=== PATIENT | male | born 1965 | race Caucasian/White ===

== ENCOUNTER 2018-08-07 07:16 | Inpatient (IN) | payer MEDICAID ==
[2018-08-07] VITALS (8 sets, daily range): BP systolic 129–150; BP diastolic 87–100
[~2018-08-07] VITALS: Ht 172.7 cm; Wt 65.8 kg
--- NOTE | 2018-08-07 07:18 | NUR ---
PATIENT BIBA TO BED 11 AT THIS TIME.
[2018-08-07] MEDS ORDERED: NACL 0.9% 1,000 ML IV ONE (07:25)
[2018-08-07] MEDS ORDERED: LORazepam 2 MG/ML VIAL IVP ONE ×2 (07:25→07:55)
--- NOTE | 2018-08-07 07:30 | NUR ---
BIB [facility] WITH C/O SEIZURE & FALL OF BED THIS MORNING WITH ABRASION WOUND TO RIGHT FORHEAD, SIZURE ON SCENE LAST FOR 1 MINS PER REPORT, DENIES ALOC, PT IS AAOX2, TONIC-CLONIC SEIZURE AT ER, +N/V, HX OF ETOH, SEIZURE. DENIES TAKE ANY MEDICATIONS AT HOME. PATIENT STATES PAIN OF 0/10 AT THIS TIME. PATIENT POSITIONED FOR COMFORT; HOB ELEVATED; BEDRAILS UP X2; BED DOWN.SEIZURE PRECAUTION. ER MD MADE AWARE OF PT STATUS.
--- NOTE | 2018-08-07 07:43 | NUR ---
LAB AT BEDSIDE
[2018-08-07 07:57] LABS: BASOPHILS # (AUTO) 0.1 K/uL (0.00-0.22); BASOPHILS % (AUTO) 1.4 % (0.0-2.0); EOSINOPHILS % (AUTO) 0.3 % (0.0-4.0); HEMATOCRIT 36.3 % (36-52); HEMOGLOBIN 12.3 g/dL (12.0-18.0); LYMPHOCYTES # (AUTO) 0.4 K/uL (2.0-11.5); LYMPHOCYTES % (AUTO) 8.4 % (20.5-51.1); MEAN CORPUSCULAR HEMOGLOBIN 33 pg (27-31); MEAN CORPUSCULAR HGB CONC 34 g/dL (33-37); MEAN CORPUSCULAR VOLUME 97.8 fL (80-94); MONOCYTES # (AUTO) 0.4 K/uL (0.8-1.0); MONOCYTES % (AUTO) 8.6 % (1.7-9.3); NEUTROPHILS % (AUTO) 81.3 % (42.2-75.2); PLATELET COUNT (AUTO) 84 K/uL (140-450); RED BLOOD CELL COUNT(AUTO) 3.71 MIL/uL (4.20-6.10); RED CELL DISTRIBUTION WIDTH 17.7 % (11.6-13.7); WHITE BLOOD COUNT (AUTO) 4.9 K/uL (4.8-10.8)
[2018-08-07] MEDS ORDERED: LORazepam 2 MG/ML VIAL ONE (08:07)
[2018-08-07 08:14] LABS: ALBUMIN 3.1 g/dL (3.4-5.0); ANION GAP 17.7 (8-16); ASPARTATE AMINOTRANSFERASE 204 U/L (15-37); CARBON DIOXIDE 23.2 mmol/L (21-32); CHLORIDE 98 mmol/L (98-107); GFR ARICAN-AMERICAN 101 mL/min (>90); GLUCOSE 152 mg/dL (74-106); MAGNESIUM 1.1 mg/dL (1.8-2.4); PHOSPHORUS 2.6 mg/dL (2.5-4.9); SODIUM SERUM 136 mmol/L (136-145); TOTAL BILIRUBIN 1.6 mg/dL (0.0-1.0); UREA NITROGEN, BLOOD 7 mg/dL (7-18)
--- NOTE | 2018-08-07 08:15 | NUR ---
PT RETURNED FROM CT Addendum: 08/07/18 at 0918 by [email or web address] PT CAN'T PROVIDE URINE AT THIS TIME
[2018-08-07 08:16] LABS: ACETAMINOPHEN < 0.5 ug/ml (10-30); POTASSIUM 2.9 mmol/L (3.5-5.1); SALICYLATE < 2.8 mg/dL (2.8-20.0)
[2018-08-07] MEDS ORDERED: FOLIC ACID 5 MG, MULTIVITAMIN-12 10 ML, THIAMINE 100 MG, MAGNESIUM SULFATE 50% 2,000 MG... IV ONE ×5 (08:22)
[2018-08-07] MEDS ORDERED: MAG SULF 2000 MG/WATER PREMIX 50 ML IV ONE (08:25)
[2018-08-07] MEDS ORDERED: KCL 20 MEQ/WATER INJ PREMIX 100 ML IV ONE (08:25)
[2018-08-07] MEDS ORDERED: ZOLPIDEM 5 MG TAB PO PRN (08:30)
[2018-08-07] MEDS ORDERED: LORazepam 2 MG/ML VIAL IM/IVP PRN (08:30)
[2018-08-07] MEDS ORDERED: ACETAMINOPHEN 325 MG TAB PO PRN (08:30)
[2018-08-07] MEDS ORDERED: HYDROcodone/APAP 5/325 MG 1 TAB TAB PO PRN (08:30)
[2018-08-07] MEDS ORDERED: MORPHINE SULFATE 2 MG/ML SYR IVP PRN (08:30)
[2018-08-07] MEDS ORDERED: DOCUSATE SODIUM 100 MG GELCAP PO PRN (08:30)
[2018-08-07] MEDS ORDERED: ONDANSETRON 4 MG/2 ML VIAL IM/IVP PRN (08:30)
[2018-08-07] MEDS ORDERED: LORazepam 2 MG/ML VIAL IVP PRN (08:35)
[2018-08-07] MEDS ORDERED: MECLIZINE 25 MG TAB PO PRN (08:35)
[2018-08-07 08:52] LABS: PROTHROMBIN TIME 10.8 secs (10.8-13.4)
[2018-08-07 08:58] LABS: PHOSPHORUS 2.7 mg/dL (2.5-4.9); THYROID STIMULATING HORMONE 2.9 uIU/mL (0.34-3.74)
--- NOTE | 2018-08-07 09:13 | NUR ---
Patient will be admitted to care of DR GARDNER. Admited to ICU. Will go to room 2. Belongings list completed. Report to JACK CARVER.
--- NOTE | 2018-08-07 09:13 | NUR ---
PT TRANSFERRED FROM ER. RECEIVED REPORT FROM MOIRA AUGUSTIN RN. PT A&0 X4. PT DROWSY BUT AWAKE. PT HAS GENERALIZED WEAKNESS AND TREMBLING. PUPILS 3MM BRISK, LEFT AND RIGHT, PERRLA. PT HAS 3MM X 0.5MM LACERATION TO RIGHT FOREHEAD SP FALL FROM PRESENT UPON ADMISSION. PATENT AIRWAY, ROOM AIR. CLEAR AND EQUAL BILATERAL BREATH SOUNDS, EQUAL CHEST EXPANSION. S1/S2 NOTED. SINUS TACH ON PLANT SUPERINTENDENT. PALPABLE PULSES AT RADIAL, POSTERIOR TIBIAL, DORSALIS PEDIS SUPERVISOR MOTORCYCLE REPAIR SHOP <3. ACTIVE BOWEL SOUNDS ALL FOUR QUADRANTS. SKIN IS WARM, PINK, DRY. IV ACCESS VIA LEFT HAND PIV (20 GAUGE), CURRENTLY RUNNING POTASSIUM CHLORIDE (20MEQ/100ML) AT 50ML/HR, SITE APPEARS LIGHT RED IN COLOR. NPO EXCEPT MEDS. PT SAFETY PRECAUTIONS IN PLACE. BED AT LOWEST POSITION, CALL LIGHT WITHIN REACH, SIDE RAILS PADDED FOR SEIZURE PRECAUTIONS. INITIAL VITAL SIGNS: HR 119, BP 150/87, RR 14, SPO2 96% RA.
--- NOTE | 2018-08-07 09:30 | NUR ---
PT'S VALUABLES GIVEN TO SECURITY FOR SAFE KEEPING.
--- NOTE | 2018-08-07 10:35 | NUR ---
COMMISSIONED SALES ASSOCIATE AT BEDSIDE FOR ABDOMINAL ULTRASOUND
--- NOTE | 2018-08-07 10:59 | NUR ---
RN AT THE BEDSIDE EVALUATING THE PT AT THIS TIME.
[2018-08-07] MEDS ORDERED: KCL 20 MEQ/WATER INJ PREMIX 200 ML IV SCH (11:00)
[2018-08-07] MEDS ORDERED: BISACODYL 10 MG SUPP RC SCH (11:15)
--- NOTE | 2018-08-07 11:19 | NUR ---
DIRECTOR OF KNOWLEDGE MANAGEMENT AT BEDSIDE
--- NOTE | 2018-08-07 11:21 | NUR ---
URINE FOR UA AND UDS TAKEN TO THE LAB BY MEHUL.
[2018-08-07] MEDS: FOLIC ACID 1 MG TAB PO SCH (11:37)
[2018-08-07] MEDS: MULTIVITAMIN 1 TAB PO SCH (11:37)
[2018-08-07] MEDS: THIAMINE 100 MG TAB PO SCH (11:38)
[2018-08-07 11:44] LABS: APPEARANCE,URINE CLEAR (CLEAR); BILIRUBIN,URINE NEGATIVE (NEGATIVE); COLOR,URINE YELLOW (YELLOW); LEUKOCYTE ESTERASE ,URINE NEGATIVE (NEGATIVE); NITRITE, URINE NEGATIVE (NEGATIVE); UGLUCOSE NEGATIVE (NEGATIVE)
[2018-08-07 11:46] LABS: BLOOD, URINE NEGATIVE (NEGATIVE)
[2018-08-07 11:50] LABS: BARBITURATE, URINE NEG. ng/ml (NEG <=200); BENZODIAZEPINE, URINE NEG. ng/mL (NEG <=200); CANNABINOID, URINE NEG. ng/mL (NEG <=50); COCAINE, URINE NEG. ng/mL (NEG <=300); OPIATE, URINE NEG. ng/mL (NEG <=2000); PHENCYCLIDINE SCREEN,URINE NEG. ng/mL (NEG <=25)
--- NOTE | 2018-08-07 11:51 | NUR ---
RT AT THE BEDSIDE FOR EKG.
--- NOTE | 2018-08-07 12:00 | NUR ---
RESTING IN BED. NO ACUTE RESPIRATORY DISTRESS NOTED. NO CHANGE IN CONDITION. VSS. WILL CONTINUE TO MONITOR.
[2018-08-07] MEDS ORDERED: NACL 0.9% IRR 250 ML BOTTLE IR PRN (12:15)
[2018-08-07] MEDS: chlordiazePOXIDE 25 MG CAP PO SCH ×2 (12:27→17:18)
[2018-08-07] MEDS ORDERED: LORazepam 1 MG TAB PO SCH (13:00)
--- NOTE | 2018-08-07 14:00 | NUR ---
DR. MARQUEZ AT BEDSIDE EVALUATING AND SPEAKING WITH PT.
--- NOTE | 2018-08-07 14:15 | NUR ---
VENOUS ACCESS NURSE AT BEDSIDE PREPARING FOR PICC PLACEMENT
[2018-08-07] MEDS: NACL 0.9% 1,000 ML IV SCH ×2 (14:32→19:27)
--- NOTE | 2018-08-07 14:45 | NUR ---
PICC LINE PLACED, DR. GILL NOTIFIED AND ORDERED STAT XRAY FOR PLACEMENT VERIFICATION.
--- NOTE | 2018-08-07 14:50 | NUR ---
CONTACTED DR. MARQUEZ TO VERIFY EEG PROCEDURE DATE/TIME. SPOKE WITH
[2018-08-07] MEDS ORDERED: MAG SULF 2000 MG/WATER PREMIX 50 ML IV SCH (15:00)
--- NOTE | 2018-08-07 16:18 | NUR ---
AUDIT CLERKS SUPERVISOR AT THE BEDSIDE.
--- NOTE | 2018-08-07 16:19 | NUR ---
PT REMAINS CALM. NO SEIZURE NOTED TILL THIS TIME. DENIES NAUSEA, VOMITING. VSS. NO C/O PAIN AT THIS TIME. ON SEIZURE PRECAUTION. BED IN LOW POSITION LOCKED. RN AT THE BEDSIDE.
[2018-08-07 17:24] LABS: CARBON DIOXIDE 27.7 mmol/L (21-32); CREATININE 0.6 mg/dL (0.7-1.3); POTASSIUM 3.7 mmol/L (3.5-5.1)
--- NOTE | 2018-08-07 18:15 | NUR ---
DR. TORREZ AT BEDSIDE EVALUATING PT.
--- NOTE | 2018-08-07 19:10 | NUR ---
REPORT GIVEN TO PROCED TECH NURSE MEHUL RUIZ FOR CONTINUITY OF CARE. PT IS CURRENTLY EATING DINNER. PT IS NOT IN DISTRESS AND REPORTS NO PAIN.
--- NOTE | 2018-08-07 19:30 | NUR ---
RECEIVED REPORT FROM MORNING RN, CHASITY, FOR CONTINUITY OF CARE. VS STABLE AT THIS TIME. SR ON MONITOR. AFEBRILE. PT ABLE TO MAKE NEEDS KNOWN AND ABLE TO FOLLOW COMMANDS. PT DENIES ANY PAIN OR DISCOMFORT AT THIS TIME. PT DENIES FEELING DIZZY. PT IN ROOM AIR. NO SIGNS OF RESPIRATORY DISTRESS NOTED. OXYGEN SATURATION 99% AT THIS TIME. S1+S2 HEARD. SR ON MONITOR. PULSES PALPABLE ON ALL EXTREMITIES. DENIES CHEST PAIN. ABDOMEN ROUND, SOFT AND NONDISTENDED. BS ACTIVE IN ALL QUADRANTS. DENIES ANY DIFFICULTY SWALLOWING. PT ABLE TO MOVE EXTREMITIES. SHAKING NOTED. PT DOES NOT HAVE ANY COMPLAINS AT THIS TIME. PT HAS PERIPHERAL IV ACCESS ON RIGHT HAND 20G AND RIGHT UPPER ARM PICC LINE IN PLACE. ALL DRESSINGS ARE CLEAN, DRY AND INTACT. ALL LINES ARE PATENT, INTACT AND ASYMPTOMATIC. NS RUNNING AT 100ML/HR. SEIZURE PRECAUTIONS IN PLACE. BED AT LOWEST POSSIBLE POSITION. CALL LIGHT WITHIN REACH. WILL CONTINUE TO MONITOR PT.
[2018-08-07] MEDS ORDERED: ALBUTEROL SULFATE/IPRATROPIU 3 ML SOL IH PRN (19:40)
[2018-08-07] MEDS ORDERED: LACTULOSE 20 GM/30 ML UDC PO SCH (20:00)
--- NOTE | 2018-08-07 20:03 | NUR ---
PT C/O HEARTBURN. DR. TORREZ CURRENTLY IN THE UNIT AND NOTIFIED ABOUT THIS. PT WAS ASKING FOR OMEPRAZOLE. RECEIVED NEW ORDER FOR PROTONIX ONE TIME DOSE. WILL FOLLOW-UP WITH AFTER HOURS PHARMACY TO VERIFY THE ORDER.
[2018-08-07] MEDS ORDERED: PANTOPRAZOLE 40 MG TABEC PO ONE (20:05)
--- NOTE | 2018-08-07 22:01 | NUR ---
PT'S EYES ARE CLOSED. VS STABLE. SR ON MONITOR. ALL SAFETY PRECAUTIONS ARE IN PLACE. CALL LIGHT WITHIN REACH. WILL CONTINUE TO MONITOR PT.
[2018-08-07] MEDS ORDERED: RIFAXIMIN 550 MG TAB PO SCH (23:20)
--- NOTE | 2018-08-07 23:50 | NUR ---
CALLED DR. TORREZ TO NOTIFY HIM THAT XIFAXAN IS NOT AVAILABLE AT THIS TIME. CANNOT ADMINISTER A DOSE AT THIS TIME. PER DR. TORREZ ITS OKAY. FIRST DOSE OF MEDICATION TO BE GIVEN IN THE MORNING.
[2018-08-08] VITALS (10 sets, daily range): BP systolic 126–151; BP diastolic 85–98
[2018-08-08] MEDS: NACL 0.9% 1,000 ML IV SCH ×3 (00:20→22:15)
--- NOTE | 2018-08-08 02:18 | NUR ---
NO CHANGE IN PT'S CONDITION AT THIS TIME. REMAINS SR ON MONITOR. NO SIGNS OF ANY DISCOMFORT AT THIS TIME. PT'S EYES ARE CLOSED. RESPIRATIONS ARE EVEN AND UNLABORED. NO SEIZURE NOTED SINCE BEGINNING OF THE SHIFT. ALL SAFETY PRECAUTIONS REMAINS IN PLACE. BED AT LOWEST POSSIBLE POSITION. CALL LIGHT WITHIN REACH. WILL CONTINUE TO MONITOR PT.
--- NOTE | 2018-08-08 03:45 | NUR ---
RESPIRATIONS ARE EVEN AND UNLABORED. NO SEIZURE EPISODES NOTED. VS STABLE. NO CHANGE IN PT'S CONDITION. NO C/O ANY DISCOMFORT AT THIS TIME.
--- NOTE | 2018-08-08 05:25 | NUR ---
MORNING CARE PROVIDED TO PT. PT WAS ENCOURAGED TO CLEAN HIMSELF. PT ABLE TO TURN AND REPOSITION HIMSELF WITH NO ASSISTANCE NEEDED. PT ASSISTED WITH BED BATH. LINENS CHANGED. PT DENIES ANY DISCOMFORT AT THIS TIME. VS REMAINS STABLE. KEPT HOB 30 DEGREES. ALL SAFETY PRECAUTIONS IN PLACE. BED AT LOWEST POSSIBLE POSITION. CALL LIGHT WITHIN REACH. RESPIRATIONS ARE EVEN AND UNLABORED.
[2018-08-08] MEDS ORDERED: PANTOPRAZOLE 40 MG INJ VIAL IVP SCH (06:30)
[2018-08-08 07:05] LABS: BASOPHILS # (AUTO) 0.1 K/uL (0.00-0.22); BASOPHILS % (AUTO) 1.3 % (0.0-2.0); EOSINOPHILS # (AUTO) 0.1 K/uL (0-0.4); EOSINOPHILS % (AUTO) 2.7 % (0.0-4.0); HEMATOCRIT 37.1 % (36-52); HEMOGLOBIN 12.6 g/dL (12.0-18.0); LYMPHOCYTES # (AUTO) 0.9 K/uL (2.0-11.5); MEAN CORPUSCULAR HEMOGLOBIN 33 pg (27-31); MEAN CORPUSCULAR HGB CONC 34 g/dL (33-37); MEAN CORPUSCULAR VOLUME 98.1 fL (80-94); MONOCYTES # (AUTO) 0.4 K/uL (0.8-1.0); NEUTROPHILS # (AUTO) 2.8 K/uL (1.8-7.7); PLATELET COUNT (AUTO) 72 K/uL (140-450); RED BLOOD CELL COUNT(AUTO) 3.79 MIL/uL (4.20-6.10); RED CELL DISTRIBUTION WIDTH 16.8 % (11.6-13.7); WHITE BLOOD COUNT (AUTO) 4.3 K/uL (4.8-10.8)
[2018-08-08 07:06] LABS: ANION GAP 11.8 (8-16); CARBON DIOXIDE 28.2 mmol/L (21-32); CREATININE 0.6 mg/dL (0.7-1.3)
[2018-08-08 07:07] LABS: MAGNESIUM 1.6 mg/dL (1.8-2.4); PHOSPHORUS 3.4 mg/dL (2.5-4.9)
--- NOTE | 2018-08-08 07:15 | NUR ---
REPORT GIVEN TO MORNING RN, CHASITY, FOR CONTINUITY OF CARE. VS STABLE AT THIS TIME.
--- NOTE | 2018-08-08 07:30 | NUR ---
RECEIVED REPORT FROM WRECKING CAR DRIVER NURSE, MEHUL RUIZ. PT A&0 X4. PT HAS GENERALIZED WEAKNESS AND TREMBLING. PUPILS 3MM BRISK, LEFT AND RIGHT, PERRLA. PT HAS 3MM X 0.5MM LACERATION TO RIGHT FOREHEAD SP FALL FROM PRESENT UPON ADMISSION, COVERED WITH VERSATEL (DRY, INTACT). PATENT AIRWAY, ROOM AIR. CLEAR AND EQUAL BILATERAL BREATH SOUNDS, EQUAL CHEST EXPANSION. S1/S2 NOTED. NORMAL SINUS ON TILE MECHANIC. PALPABLE PULSES AT RADIAL, POSTERIOR TIBIAL, DORSALIS PEDIS, IN FLIGHT REFUELING SYSTEM REPAIRER <3. ACTIVE BOWEL SOUNDS ALL FOUR QUADRANTS. SKIN IS WARM, PINK, DRY. IV ACCESS VIA RIGHT FOREARM PIV (20 GAUGE) AND MONSERRAT PICC DOUBLE LUMEN, CURRENTLY RUNNING NS AT 100ML/HR, SITE APPEARS CLEAN, DRY, INTACT, NO SIGNS OF INFILTRATION. REGULAR DIET. NO COMPLAINTS OF PAIN OR DISCOMFORT, PT CAN TURN HIMSELF. PT SAFETY PRECAUTIONS IN PLACE. BED AT LOWEST POSITION, CALL LIGHT WITHIN REACH, SIDE RAILS PADDED FOR SEIZURE PRECAUTIONS. INITIAL VITAL SIGNS: HR 84, BP 135/94, RR 10, SPO2 94% RA, TEMP 98.3.
--- NOTE | 2018-08-08 07:44 | NUR ---
RESIDENTS ROUNDING AT PT'S BEDSIDE. INFORMED OF MORNING LAB POTASSIUM LEVEL 3.0
--- NOTE | 2018-08-08 07:50 | NUR ---
DR. PETERSON AT PT'S BEDSIDE. INFORMED OF HEARTBURN EPISODE DURING THE EVENING TREATED WITH PROTONIX (ONCE). ASKED ABOUT GI PROPHYLACTIC PROTONIX. WILL FOLLOW UP ON ORDERS.
[2018-08-08] MEDS ORDERED: SIMETHICONE 80 MG TAB.CHEW PO SCH (08:15)
[2018-08-08] MEDS: SERTRALINE 50 MG TAB PO SCH (08:42)
[2018-08-08] MEDS: MULTIVITAMIN 1 TAB PO SCH (08:43)
[2018-08-08] MEDS: THIAMINE 100 MG TAB PO SCH (08:43)
[2018-08-08] MEDS: chlordiazePOXIDE 25 MG CAP PO SCH ×3 (08:44→17:35)
[2018-08-08] MEDS: FOLIC ACID 1 MG TAB PO SCH (08:44)
[2018-08-08] MEDS: LACTULOSE 20 GM/30 ML UDC PO SCH ×2 (08:45→20:28)
[2018-08-08] MEDS ORDERED: KCL 20 MEQ/WATER INJ PREMIX 200 ML IV SCH (09:00)
--- NOTE | 2018-08-08 09:35 | NUR ---
DR. GILL NOTIFIED ABOUT PNEUMOCOCCAL VACCINATIONS. WILL FOLLOW UP ON ORDERS.
--- NOTE | 2018-08-08 09:43 | NUR ---
PT PROVIDED EDUCATION MATERIAL ON ALCOHOL SUBSTANCE ABUSE, WITHDRAWAL, NUTRITION, AND POTASSIUM CHLORIDE REPLACEMENT.
--- NOTE | 2018-08-08 09:55 | NUR ---
RN AT THE BED SIDE.
--- NOTE | 2018-08-08 10:20 | NUR ---
BED BATH AND ORAL CARE PROVIDED WITH STANDBY ASSISTANCE. LINENS AND GOWN CHANGED. PATIENT TOLERATED WELL.
--- NOTE | 2018-08-08 12:19 | NUR ---
RESTING IN BED. ALERT AND AWAKE. DENIES PAIN AT THIS TIME. DENIES NAUSEA OR DIZZINESS. PT VERBALIZES FEELING BETTER. +TREMORS. SR-ST ON MONITOR. WILL CONTINUE TO MONITOR.
[2018-08-08] MEDS ORDERED: MAG SULF 2000 MG/WATER PREMIX 50 ML IV SCH (13:00)
--- NOTE | 2018-08-08 13:25 | NUR ---
REPORT GIVEN TO MEHUL ARITA IN [facility] FOR CONTINUITY OF CARE.
--- NOTE | 2018-08-08 13:40 | NUR ---
PT GIVEN PHONE TO CONTACT HIS BROTHER, JOEY WREN. PT SPOKE TO BROTHER FOR SEVERAL MINUTES PRIOR TO TRANSFER TO [facility].
--- NOTE | 2018-08-08 13:50 | NUR ---
PATIENT ARRIVED FROM ICU VIA WHEELCHAIR. ABLE TO AMBULATE FROM WHEELCHAIR TO [facility] BED WITH ASSISTANCE. NO DISTRESS NOTED. DENIES ANY PAIN. AAOX4, CALM, COOPERATIVE, SKIN COLOR APPROPRIATE TO ETHNICITY, WARM TO TOUCH. HAS RIGHT FOREHEAD ABRASION DUE TO S/P FALL, VERSATEL DRESSING ALREADY APPLIED ON IT. RIGHT UPPER PICC LINE NOTED, INFUSING IVF PER MD ORDERS. IV SITE ON RIGHT FOREARM, INTACT, PATENT, AND ON SALINE LOCK. ORIENTED PATIENT TO ROOM AND CALL LIGHT. REVIEWED PLAN OF CARE WITH PATIENT. PATIENT VERBALIZED UNDERSTANDING. SAFETY MEASURES IN PLACE, CALL LIGHT WITHIN REACH. WILL CONTINUE TO MONITOR.
--- NOTE | 2018-08-08 14:05 | NUR ---
PT TRANSFERRED TO [facility] ROOM 123B, REPORT GIVEN TO MEHUL ARITA FOR CONTINUITY OF CARE. PT BELONGINGS TRANSFERRED WITH PT, VALUABLES LOCATED IN SAFE. VITAL SIGNS STABLE. PT TOLERATED TRANSFER WELL, NO SIGNS OF DISTRESS OR PAIN. Addendum: 08/08/18 at 1504 by Brian Biswas RN PT TRANSFERRED AT 1340.
--- NOTE | 2018-08-08 17:36 | NUR ---
PATIENT SITTING IN BED WATCHING TV. NO DISTRESS NOTED. DENIES ANY PAIN. SCHEDULED MEDICATIONS DUE GIVEN. WILL CONTINUE TO MONITOR.
--- NOTE | 2018-08-08 19:26 | NUR ---
GAVE REPORT TO CHIEF MATE NURSE FOR CONTINUITY OF CARE. PATIENT IN STABLE CONDITION.
--- NOTE | 2018-08-08 19:27 | NUR ---
RECEIVED PT ON BED WATCHING TV, AAOX4, CALM AND COOPERATIVE, ABLE TO MAKE NEEDS KNOWN, VITAL SIGNS STABLE, SR ON TELE, NO SIGNS OF WITHDRAWAL SYMPTOMS AT THIS TIME, PLAN OF CARE DISCUSSED, SAFETY MEASURES IN PLACE, ON SEIZURE PRECAUTION WITH SIDE RAILS UP AND PADDED, CALL LIGHT WITHIN REACH.
--- NOTE | 2018-08-08 20:30 | NUR ---
DUE MEDICATION ADMINISTERED, TOLERATED WELL, PT VOIDING FREELY PER URINAL, ALL NEEDS ATTENDED.
--- NOTE | 2018-08-08 22:35 | NUR ---
PT AMBULATED TO BR WITH STANDBY ASSIST, PT STATED HAS LOOSE BM, PT TAKING LACTULOSE, MONITORED CLOSELY.
[2018-08-08] MEDS ORDERED: HYDRAGUARD CREAM TP PRN (23:35)
[2018-08-09] VITALS: BP 126/84
--- NOTE | 2018-08-09 01:05 | NUR ---
PT STILL AWAKE, UNABLE TO SLEEP, MEDICATED WITH AMBIEN FOR INSOMNIA, MONITORED CLOSELY.
[2018-08-09] MEDS: NACL 0.9% 1,000 ML IV SCH ×3 (01:27→20:53)
--- NOTE | 2018-08-09 02:20 | NUR ---
ROUNDS MADE, SEEN PT SLEEPING, VISIBLE CHEST RISE AND FALL, NO DISTRESS NOTED BED ALARM ON, MONITORED CLOSELY.
[2018-08-09 04:00] VITALS: BP 138/95
--- NOTE | 2018-08-09 04:00 | NUR ---
PT SLEEPING, EASILY AROUSABLE, VITAL SIGNS STABLE, DENIES ANY PAIN, IVF INFUSING WELL, MONITORED CLOSELY.
--- NOTE | 2018-08-09 06:00 | NUR ---
AM LABS DRAWN VIA PICC LINE WITH GOOD BLOOD RETURN, BOTH PORTS FLUSHES WELL, IVF RESUMED, PT WENT BACK TO SLEEP, MONITORED CLOSELY.
--- NOTE | 2018-08-09 06:25 | NUR ---
PT AWAKE, WATCHING TV, JUICE PROVIDED PER REQUEST, NOTED SLIGHT TREMORS TO HANDS, AAOX4, CALM AND COOPERATIVE, NO SEIZURE EPISODE THE WHOLE SHIFT, MONITORED CLOSELY.
--- NOTE | 2018-08-09 07:10 | NUR ---
PT AWAKE, NO SIGNS OF DISTRESS, BEDSIDE REPORT GIVEN TO RN PAPA FOR CONTINUITY OF CARE.
[2018-08-09 07:16] LABS: BASOPHILS # (AUTO) 0.1 K/uL (0.00-0.22); BASOPHILS % (AUTO) 1.3 % (0.0-2.0); EOSINOPHILS # (AUTO) 0.2 K/uL (0-0.4); HEMATOCRIT 34.1 % (36-52); HEMOGLOBIN 11.5 g/dL (12.0-18.0); LYMPHOCYTES # (AUTO) 0.9 K/uL (2.0-11.5); LYMPHOCYTES % (AUTO) 20.1 % (20.5-51.1); MEAN CORPUSCULAR HEMOGLOBIN 34 pg (27-31); MEAN CORPUSCULAR HGB CONC 34 g/dL (33-37); MEAN CORPUSCULAR VOLUME 99.4 fL (80-94); MONOCYTES # (AUTO) 0.4 K/uL (0.8-1.0); MONOCYTES % (AUTO) 9.3 % (1.7-9.3); NEUTROPHILS # (AUTO) 2.9 K/uL (1.8-7.7); NEUTROPHILS % (AUTO) 65.3 % (42.2-75.2); PLATELET COUNT (AUTO) 75 K/uL (140-450); RED BLOOD CELL COUNT(AUTO) 3.43 MIL/uL (4.20-6.10); RED CELL DISTRIBUTION WIDTH 16.2 % (11.6-13.7); WHITE BLOOD COUNT (AUTO) 4.5 K/uL (4.8-10.8)
--- NOTE | 2018-08-09 07:25 | NUR ---
PATIENT WAS AWAKE, ALERT. RESPIRATION EVEN, UNLABOR ON ROOM AIR. SKIN DRY AND WARM. PICC LINE PATENT AND INTACT. DENIED PAIN, SOB AT THIS TIME. PLAN OF CARE WAS DISCUSSED WITH PATIENT. BED AT LOW POSITION, SIDE RAILS UP. CALL LIGHT WITHIN REACH. SEIZURE PRECAUTION ENSURED
[2018-08-09 07:43] LABS: ANION GAP 13.1 (8-16); CARBON DIOXIDE 25.5 mmol/L (21-32); CREATININE 0.8 mg/dL (0.7-1.3); POTASSIUM 3.6 mmol/L (3.5-5.1)
[2018-08-09 07:47] LABS: MAGNESIUM 1.6 mg/dL (1.8-2.4); PHOSPHORUS 2.8 mg/dL (2.5-4.9)
[2018-08-09 08:00] VITALS: BP 152/58
--- NOTE | 2018-08-09 08:54 | NUR ---
PATIENT HAS BEEN SCREENED AND CATEGORIZED HIGH NUTRITION RISK. PATIENT WILL BE SEEN WITHIN 1-2 DAYS OF ADMISSION. 08/09/[address]
--- NOTE | 2018-08-09 09:00 | NUR ---
PATIENT REMOVED IV LINE, AND YELLOW GOWN, STATED HE WANTED TO LEAVE TODAY. PATIENT WAS EDUCATED ON LEAVING AGAINST MEDICAL ADVISE AND RISKS ASSOCIATED. PATIENT VERBALIZED UNDERSTANDING AND DECIDED TO STAY. IVF WAS RESUMED.
[2018-08-09] MEDS: chlordiazePOXIDE 25 MG CAP PO SCH ×3 (09:11→17:05)
[2018-08-09] MEDS: THIAMINE 100 MG TAB PO SCH (09:11)
[2018-08-09] MEDS: FOLIC ACID 1 MG TAB PO SCH (09:11)
[2018-08-09] MEDS: LACTULOSE 20 GM/30 ML UDC PO SCH ×2 (09:12→20:52)
[2018-08-09] MEDS: MULTIVITAMIN 1 TAB PO SCH (09:12)
[2018-08-09] MEDS: SERTRALINE 50 MG TAB PO SCH (09:12)
--- NOTE | 2018-08-09 09:30 | NUR ---
PATIENT WAS FOUND AMBULATING WITH PT WITHOUT IV LINE. PATIENT REMOVED IV LINE PER PT. PATIENT REFUSED TO HAVE IT PUT BACK ON. WILL NOTIFY
--- NOTE | 2018-08-09 10:22 | NUR ---
DR. YOUSSEF WAS MADE AWARE OF PATIENT REMOVING IV LINE. OK TO DC IV FLUID
--- NOTE | 2018-08-09 10:30 | NUR ---
SPOKE TO PATIENT AT BEDSIDE INQUIRING THE NAME OF THE REHAB HOME IN [place] WHERE HE CAME FROM, PATIENT CAN NOT REMEMBER THE NAME OF THE PLACE. HE SAID HE WLL CALL A FRIEND TO FIND OUT. INSTRUCTED PATIENT TO LET THE PRIMARY NURSE KNOWS SOON HE GETS THE INFORMATION. PRINCESS CARVER MADE AWARE AND VERBALIZED UNDERSTANDING.
--- NOTE | 2018-08-09 10:30 | NUR ---
DR. YOUSSEF WAS AMADE AWARE OF PATIENT'S MAG 1.6. AWAITING FOR NEW ORDER
[2018-08-09 12:00] VITALS: BP 129/88
--- NOTE | 2018-08-09 12:00 | NUR ---
PATIENT WAS AWAKE, ALERT. RESPIRATION EVEN, UNLABOR ON ROOM AIR. DENIED PAIN, SOB. NO DISTRESS NOTED AT THIS TIME
[2018-08-09 12:14] LABS: HEPATITIS A ANTIBODY IGM Negative (Negative); HEPATITIS B CORE AB TOTAL Negative (Negative); HEPATITIS B SURFACE ANTIBODY Non Reactive (.); HEPATITIS B SURFACE ANTIGEN Negative (Negative)
--- NOTE | 2018-08-09 13:43 | NUR ---
08/09/18 RD INITIAL ASSESSMENT COMPLETED PLEASE REFER TO NUTRITION ASSESSMENT UNDER CARE ACTIVITY FOR ESTIMATED NUTRITIONAL NEEDS. 1. CONTINUE REGULAR DIET TOLERATED 2. RD PROVIDED NUTRITION EDUCATION ON SOBRIETY 3. RD TO FOLLOW-UP 5-7 DAYS, LOW RISK PEDRO [address]
--- NOTE | 2018-08-09 13:45 | NUR ---
FOLLOWED UP WITH PATIENT NAME OF THE REHAB HOME IN [place], BUT NO INFORMATION YET AT THIS TIME.
--- NOTE | 2018-08-09 14:15 | NUR ---
PATIENT WAS AWAKE, ALERT, SITTING ON CHAIR COMFORTABLY. RESPIRATION EVEN, UNLABOR ON ROOM AIR. NO DISTRESS NOTED AT THIS TIME. BED LINEN WAS CHANGED
[2018-08-09 16:00] VITALS: BP 121/92
--- NOTE | 2018-08-09 16:00 | NUR ---
PATIENT WAS RESTING COMFORTABLY. RESPIRATION EVEN, UNLABOR ON ROOM AIR. DENIED PAIN AT THIS TIME. NO DISTRESS NOTED. CALL LIGHT WITHIN REACH
[2018-08-09] MEDS ORDERED: MAGNESIUM OXIDE 400 MG TAB PO SCH (17:30)
--- NOTE | 2018-08-09 18:11 | NUR ---
PATIENT WAS AWAKE, ALERT, EATING DINNER COMFORTABLY. RESPIRATION EVEN, UNLABOR ON ROOM AIR. NO DISTRESS NOTED AT THIS TIME
--- NOTE | 2018-08-09 19:29 | NUR ---
REPORT WAS GIVEN TO JOURNALISM INTERN NURSE. PATIENT IS STABLE AT THIS TIME
--- NOTE | 2018-08-09 19:30 | NUR ---
RECEIVED REPORT AT PT BEDSIDE FROM MEHUL SÁNCHEZ. PT AAOX4, ON ROOM AIR. ABLE TO FOLLOW COMMANDS, AND ABLE TO MAKE NEEDS KNOWN. PT AMBULATES WITH STEADY GAIT, AND SKIN IS INTACT ASIDE FROM AN ABRASION TO RIGHT FOREHEAD. RESPIRATIONS EVEN AND UNLABORED. PT HAS A PICC LINE TO THE RIGHT UPPER ARM. DISCUSSED PLAN OF CARE WITH PT, PT VERBALIZED UNDERSTANDING. NO SIGNS OF DISTRESS NOTED. SEIZURE PRECAUTIONS IN PLACE. DENIES PAIN. VITAL SIGNS STABLE. BED IN LOWEST POSITION, CALL LIGHT WITHIN REACH. WILL CONTINUE TO MONITOR.
[2018-08-09 20:00] VITALS: BP 138/105
--- NOTE | 2018-08-09 20:54 | NUR ---
ADMINISTERED SCHEDULED MEDICATION, PT TOLERATED WELL. BED IN LOWEST POSITION, CALL LIGHT WITHIN REACH. SEIZURE PRECAUTIONS IN PLACE. WILL CONTINUE TO MONITOR.
--- NOTE | 2018-08-09 22:15 | NUR ---
GAVE PT SOME WATER WITH ICE REQUESTED BY HIM. NO SIGNS OF DISTRESS NOTED. SEIZURE PRECAUTIONS IN PLACE. DENIES PAIN. BED IN LOWEST POSITION, CALL LIGHT WITHIN REACH. WILL CONTINUE TO MONITOR.
[2018-08-10] VITALS: BP 147/105
--- NOTE | 2018-08-10 | NUR ---
VITAL SIGNS STABLE, DENIES HAVING ANY PAIN. SEIZURE PRECAUTIONS IN PLACE. BED IN LOWEST POSITION, CALL LIGHT WITHIN REACH. WILL CONTINUE TO MONITOR.
--- NOTE | 2018-08-10 02:25 | NUR ---
PT SLEEPING BUT EASILY AROUSABLE. DENIES HAVING ANY PAIN. SEIZURE PRECAUTIONS IN PLACE. BED IN LOWEST POSITION, CALL LIGHT WITHIN REACH. WILL CONTINUE TO MONITOR.
[2018-08-10 04:00] VITALS: BP 152/97
--- NOTE | 2018-08-10 04:00 | NUR ---
VITAL SIGNS STABLE, DENIES HAVING ANY PAIN. SEIZURE PRECAUTIONS IN PLACE. BED IN LOWEST POSITION, CALL LIGHT WITHIN REACH. WILL CONTINUE TO MONITOR.
--- NOTE | 2018-08-10 05:30 | NUR ---
XIOMARA BLOOD FROM PICC LINE AND FLUSHED WITH NS.
[2018-08-10 06:51] LABS: BASOPHILS # (AUTO) 0.1 K/uL (0.00-0.22); BASOPHILS % (AUTO) 1.4 % (0.0-2.0); EOSINOPHILS # (AUTO) 0.2 K/uL (0-0.4); EOSINOPHILS % (AUTO) 3.4 % (0.0-4.0); HEMATOCRIT 34.4 % (36-52); HEMOGLOBIN 11.6 g/dL (12.0-18.0); MEAN CORPUSCULAR HEMOGLOBIN 34 pg (27-31); MEAN CORPUSCULAR HGB CONC 34 g/dL (33-37); MEAN CORPUSCULAR VOLUME 100.1 fL (80-94); MONOCYTES # (AUTO) 0.6 K/uL (0.8-1.0); NEUTROPHILS # (AUTO) 2.8 K/uL (1.8-7.7); NEUTROPHILS % (AUTO) 60.2 % (42.2-75.2); PLATELET COUNT (AUTO) 97 K/uL (140-450); RED BLOOD CELL COUNT(AUTO) 3.43 MIL/uL (4.20-6.10); RED CELL DISTRIBUTION WIDTH 16.3 % (11.6-13.7); WHITE BLOOD COUNT (AUTO) 4.6 K/uL (4.8-10.8)
--- NOTE | 2018-08-10 07:26 | NUR ---
ENDORSED PT TO DAY SHIFT RN HAKAN, AT BEDSIDE, FOR CONTINUITY OF CARE. PT IN STABLE CONDITION.
--- NOTE | 2018-08-10 07:28 | NUR ---
RECEIVED BEDSIDE REPORT FROM ASSET PROTECTION PROFESSIONAL NURSE FOR CONTINUITY OF CARE. PATIENT IS RESTING ON BED AT THIS TIME. PATIENT IS AOX4, TO NAME, PLACE, DATE AND TIME. ABLE TO MAKE NEEDS KNOWN AND ABLE TO FOLLOW TO FOLLOW COMMANDS. COMMUNICATE APPROPRIATELY. RESPIRATION EVEN AND UNLABORED. ON RA. DENIES PAIN AND SOB. NO SIGNS OF DISTRESS NOTED. R UPPER ARM PICC LINE, INTACT AND DRY, NOT INFUSING AT THIS TIME. R SKIN INTACT AND DRY. ABLE TO AMBULATE WITH STANDBY ASSISTANCE. FALL PRECAUTION AND SEIZURE PRECAUTION IN PLACE. DISCUSSED PLAN OF CARE WITH PATIENT, AND PATIENT VERBALIZED UNDERSTANDING. BED IN LOW POSITION AND CALL LIGHT WITHIN REACH. INSTRUCTED PATIENT TO USE THE CALL LIGHT FOR ANY ASSISTANCE AND PATIENT WAS AWARE.
[2018-08-10 07:40] LABS: ANION GAP 12.4 (8-16); CARBON DIOXIDE 25.3 mmol/L (21-32); POTASSIUM 3.7 mmol/L (3.5-5.1)
[2018-08-10 07:41] LABS: CREATININE 0.8 mg/dL (0.7-1.3)
[2018-08-10 07:48] LABS: MAGNESIUM 1.3 mg/dL (1.8-2.4); PHOSPHORUS 3.3 mg/dL (2.5-4.9)
[2018-08-10 08:00] VITALS: BP 146/102
[2018-08-10] MEDS: FOLIC ACID 1 MG TAB PO SCH (09:03)
[2018-08-10] MEDS: SERTRALINE 50 MG TAB PO SCH (09:04)
[2018-08-10] MEDS: MULTIVITAMIN 1 TAB PO SCH (09:04)
[2018-08-10] MEDS: THIAMINE 100 MG TAB PO SCH (09:04)
[2018-08-10] MEDS: chlordiazePOXIDE 25 MG CAP PO SCH ×2 (09:05→13:24)
[2018-08-10] MEDS: NACL 0.9% 1,000 ML IV SCH (09:05)
[2018-08-10] MEDS: LACTULOSE 20 GM/30 ML UDC PO SCH (09:05)
--- NOTE | 2018-08-10 09:10 | NUR ---
ADMINISTERED MEDS PER MD ORDER, PATIENT TOLERATED WELL. PATIENT IS AWAKE AND WATCHING TV ON BED AT THIS TIME. ABLE TO COMMUNICATE APPROPRIATELY. DENIES PAIN AND SOB. NO SIGNS OF DISTRESS NOTED. SAFETY MEASURES IN PLACE. TELE MONITOR ATTACHED.
--- NOTE | 2018-08-10 11:10 | NUR ---
PATIENT WALKED OUT OF HIS ROOM AND TOOK OFF HIS TELE MONITOR, AND ID BAND. HE CHANGED INTO HIS OWN CLOTHED.. HE SAID HE WANTS TO LEAVE NOW. EDUCATED PATIENT THAT HE IS NOT STABLE TO LEAVE. NOTIFIED DR ERNANDEZ ABOUT THIS SITUATION AND DR ERNANDEZ SAID SHE WILL COME TALK TO PATIENT.
--- NOTE | 2018-08-10 11:25 | NUR ---
DR ALVAREZ TALKED TO PATIENT AT BEDSIDE. PATIENT SAID HE CHANGED HIS MIND AND WILL NOT LEAVE. TELE MONITOR ATTACHED.
[2018-08-10 12:00] VITALS: BP 141/100
--- NOTE | 2018-08-10 13:20 | NUR ---
PATIENT IS RESTING ON BED AND WATCHING TV AT THIS TIME. NO SIGNS OF DISTRESS NOTED. SAFETY MEASURES IN PLACE. TELE MONITOR ATTACHED.
--- NOTE | 2018-08-10 14:35 | NUR ---
PATIENT IS SITTING UP ON BED. DENIES PAIN, DIZZINESS, AND SOB. NO SIGNS OF DISTRESS NOTED. TELE MONITOR ATTACHED. SAFETY MEASURES IN PLACE.
--- NOTE | 2018-08-10 17:10 | NUR ---
DISCHARGE INSTRUCTION PROVIDED TO PATIENT AT BEDSIDE. EDUCATED PATIENT ON FOLLOW UP WITH MD, DISEASE MANAGEMENT, SIGNS AND SYMPTOMS, AND DIET REGIMEN. PATIENT VERBALIZED UNDERSTANDING. ANSWERED ALL PATIENT'S QUESTIONS. D/C PICC AND CANNULA INTACT, NO BLEEDING AT SITE. REMOVED ALL ARM BANDS. PATIENT CHANGED INTO HIS OWN CLOTHES. PATIENT WAS AOX4, TO NAME, TO PLACE, DATE AND TIME. HE WAS ABLE TO COMMUNICATE APPROPRIATELY AND STATED HIS ADDRESS CORRECTLY. PATIENT TOOK ALL HIS BELONGINGS. PROVIDED A BUS PASS TO PATIENT. ESCORTED PATIENT TO THE LOBBY. PATIENT IS DISCHARGE AT THIS TIME IN STABLE CONDITION.
== END 2018-08-10 17:10 | disposition home or self-care (01) | DRG 53 ==
LOC: MED 07:16 → MIC 08:26 → MTU 08-08 13:27
PROVIDERS: ADMIT General Practice; ATTEND General Practice
PROC: 02HV33Z Insertion of Infusion Device into Superior Vena Cava, Percutaneous Approach (ICD-10-PCS; principal; 2018-08-07)
PROC: B548ZZA Ultrasonography of Superior Vena Cava, Guidance (ICD-10-PCS; 2018-08-07)
PROC: 0HQ1XZZ Repair Face Skin, External Approach (ICD-10-PCS; 2018-08-07)
DX: G40.909 Epilepsy, unspecified, not intractable, without status epilepticus (principal); D69.6 Thrombocytopenia, unspecified; E44.0 Moderate protein-calorie malnutrition; E83.42 Hypomagnesemia; K86.89 Other specified diseases of pancreas; K72.90 Hepatic failure, unspecified without coma; S01.81XA Laceration without foreign body of other part of head, initial encounter; F10.239 Alcohol dependence with withdrawal, unspecified; Z68.22 Body mass index [BMI] 22.0-22.9, adult; E87.6 Hypokalemia; Y90.9 Presence of alcohol in blood, level not specified; E78.5 Hyperlipidemia, unspecified; F32.9 Major depressive disorder, single episode, unspecified; K25.9 Gastric ulcer, unspecified as acute or chronic, without hemorrhage or perforation; F41.9 Anxiety disorder, unspecified; W18.30XA Fall on same level, unspecified, initial encounter; Y93.89 Activity, other specified; Y92.89 Other specified places as the place of occurrence of the external cause; Y99.8 Other external cause status
CPT/HCPCS: 36415; 70450; 71045; 76700; 80048; 80053; 80305; 81003; 82140; 83036; 83690; 83735; 83880; 84100; 84134; 84443; 85025; 85610; 85730; 86704; 86706; 86708; 86709; 86803; 87081; 87340; 93005; 95816; 96361; 96374; 97161-GP; 99291; G0480; G0482; J2060; J3475; J3480; J7030; Q0092